=== PATIENT | female | born 1985 | race Caucasian/White ===

== ENCOUNTER 2018-06-30 03:11 | Emergency (ER) | payer OTHER ==
[2018-06-30] MEDS ORDERED: ASPIRIN 81 MG TABLET, CHEWABLE PO ONE (03:47)
[2018-06-30] MEDS ORDERED: LIDOCAINE 2% VISCOUS SOLN 20 ML UDCUP PO ONE (03:48)
[2018-06-30] MEDS ORDERED: MAG HYDROX/AL HYDROX/SIMETH SUSP 30 ML UDCUP PO ONE (03:48)
--- NOTE | 2018-06-30 03:50 | ER Document Report ---
ED General - General Mode of Arrival: Ambulatory Information source: Patient - HPI Onset: Other - 2 AM Onset/Duration: Sudden Quality of pain: Burning Pain Level: 4 Associated symptoms: Chest pain, Shortness of breath. denies: Nonproductive cough, Productive cough, Fever Exacerbated by: Denies Relieved by: Denies Similar symptoms previously: Yes Recently seen / treated by doctor: No <WILLIAM BANSAL - Last Filed: 06/30/18 07:06> <DUYEN SLATER - Last Filed: 06/30/18 08:47> - General Chief Complaint: Chest Pain Stated Complaint: DIFFICULTY BREATHING Time Seen by Provider: 06/30/18 03:39 Notes: Patient presents complaining of waking up gasping for air and having an acid taste in her throat. Patient states she does have a history of GERD and suspects the same today. Patient states that she will typically have episodes like this 1-2 times a week over the past 6 years. Patient states the symptoms have been worsening over the past month. Patient denies any fever. Patient states that at 2 AM she woke up with symptoms and had a burning in her chest with left arm pain. Patient states that she was short of breath at the time. Patient states that she saw GI doctor 10 years ago but has not seen one since for evaluation of her continued reflux symptoms. Patient states she took multiple Tums tablets without improvement of her symptoms which prompted her visit here [facility]. 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 Denies: Hx Peritoneal Dialysis GI Medical History: Reports: Hx Gastroesophageal Reflux Disease Psychiatric Medical History: Reports: Hx Depression <WILLIAM BANSAL - Last Filed: 06/30/18 07:06> Review of Systems - Review of Systems Constitutional: No symptoms reported. denies: Fever, Recent illness EENT: No symptoms reported Cardiovascular: Chest pain Respiratory: Short of breath Gastrointestinal: No symptoms reported. denies: Abdominal pain, Nausea Genitourinary: No symptoms reported Female Genitourinary: No symptoms reported Musculoskeletal: No symptoms reported Skin: No symptoms reported Hematologic/Lymphatic: No symptoms reported Neurological/Psychological: No symptoms reported <WILLIAM BANSAL - Last Filed: 06/30/18 07:06> Physical Exam - General General appearance: Appears well, Alert In distress: None - HEENT Head: Normocephalic, Atraumatic Eyes: Normal Conjunctiva: Normal Nasal: Normal Mouth/Lips: Normal Mucous membranes: Normal Neck: Normal, Supple. No: Lymphadenopathy - Respiratory Respiratory status: No respiratory distress Chest status: Tender Breath sounds: Nonproductive cough. No: Rales, Rhonchi, Stridor, Wheezing Chest palpation: Normal - Cardiovascular Rhythm: Regular Heart sounds: S1 appreciated, S2 appreciated Murmur: No - Abdominal Inspection: Morbidly Obese Distension: No distension Bowel sounds: Normal Tenderness: Nontender Organomegaly: No organomegaly - Back Back: Normal, Nontender - Extremities General upper extremity: Normal inspection, Normal strength General lower extremity: Normal inspection, Normal strength - Neurological Neuro grossly intact: Yes Cognition: Normal Donny Coma Scale Eye Opening: Spontaneous Donny Coma Scale Verbal: Oriented Donny Coma Scale Motor: Obeys Commands Donny Coma Scale Total: 15 - Psychological Associated symptoms: Normal affect, Normal mood - Skin Skin Temperature: Warm Skin Moisture: Dry Skin Color: Normal <WILLIAM BANSAL - Last Filed: 06/30/18 07:06> - Vital signs Vitals: Temp Pulse Resp BP Pulse Ox 98.3 F 102 H 20 139/90 H 96 06/30/18 03:18 06/30/18 03:18 06/30/18 03:18 06/30/18 03:18 06/30/18 03:18 Course - Laboratory Result Diagrams: 06/30/18 04:05 06/30/18 04:05 - Diagnostic Test Radiology reviewed: Reports reviewed <NIMISHA,JAIROMELINA - Last Filed: 06/30/18 07:06> - Laboratory Result Diagrams: 06/30/18 04:05 11/18/18 04:05 <DUYEN SLATER - Last Filed: 06/30/18 08:47> - Re-evaluation Re-evalutation: 06/30/18 05:12 Patient reports that burning sensation to chest is resolved after Maalox, patient refused oral lidocaine. Patient's vital signs stable at this time. Patient feels that her symptoms are related to reflux. Will cycle a second troponin test on patient given episode of left arm pain that has resolved at this time. Patient without complaints at this time. We will continue to monitor. 06/30/18 07:07 Bedside report and handoff given to [facility] (WILLIAM BANSAL) 06/30/18 08:46 2nd trop negative. pt completely asymptomatic and has been since I started my shift. Vitals acceptable. Pt would like to be discharged to home. Recheck with PCM as directed. Return to the ED with any other worsening/concerning symptoms otherwise as reviewed discharge. Patient is in agreement. (DUYEN SLATER) - Vital Signs Vital signs: Temp Pulse Resp BP Pulse Ox 98.3 F 102 H 22 H 110/76 96 06/30/18 03:18 06/30/18 03:18 06/30/18 08:00 06/30/18 08:00 06/30/18 08:00 - Laboratory Laboratory results interpreted by me: 06/30/18 04:05 Sodium 145.4 H Glucose 184 H Discharge <WILLIAM BANSAL - Last Filed: 06/30/18 07:06> <DUYEN SLATER - Last Filed: 06/30/18 08:47> - Discharge Clinical Impression: GERD (gastroesophageal reflux disease) Qualifiers: Esophagitis presence: esophagitis presence not specified Qualified Code(s): K21.9 - Gastro-esophageal reflux disease without esophagitis Condition: Stable Disposition: HOME, SELF-CARE Instructions: Antacid Therapy ([facility]), Reflux Disease (GERD) ([facility]) Additional Instructions: Return immediately for any new or worsening symptoms Followup with your primary care provider, call tomorrow to make a followup appointment Follow-up with a rose grower for further evaluation of your reflux symptoms Prescriptions: Famotidine [Pepcid 20 mg Tablet] 20 mg PO BID #12 tablet Sucralfate [Carafate 1 gm Tablet] 1 gm PO ACHS #40 tablet Referrals: ADELAIDA ROA MD [Primary Care Provider] - Follow up as needed VIDYA GUIDO MD [ACTIVE STAFF] - Follow up as needed BHAKTI NEWBERRY MD [NO LOCAL MD] - Follow up as needed
[2018-06-30 04:18] LABS: ABSOLUTE BASOPHILS # (AUTO) 0.1 10^3/uL (0.0-0.2); ABSOLUTE EOSINOPHILS # (AUTO) 0.2 10^3/uL (0.0-0.6); ABSOLUTE LYMPHOCYTES (AUTO) 2.5 10^3/uL (0.5-4.7); ABSOLUTE MONOCYTES (AUTO) 0.6 10^3/uL (0.1-1.4); ABSOLUTE NEUT (AUTO) 5.7 10^3/uL (1.7-8.2); BASOPHILS % (AUTO) 0.7 % (0-2); EOSINOPHILS % (AUTO) 2.4 % (0-6); HEMOGLOBIN 12.7 g/dL (12.0-15.5); LYMPHOCYTES % (AUTO) 27.7 % (13-45); MEAN CORPUSCULAR HEMOGLOBIN 27.7 pg (27.0-33.4); MEAN CORPUSCULAR HGB CONC 33.4 g/dL (32.0-36.0); MEAN CORPUSCULAR VOLUME 83 fl (80-97); MONOCYTES % (AUTO) 6.3 % (3-13); PLATELET COUNT 346 10^3/uL (150-450); RED BLOOD COUNT 4.59 10^6/uL (3.72-5.28); SEGMENTED NEUTROPHILS % (AUTO) 62.9 % (42-78); TOTAL CELLS COUNTED % (AUTO) 100 %
[2018-06-30 04:33] LABS: ALANINE AMINOTRANSFERASE 42 U/L (9-52); ALKALINE PHOSPHATASE 71 U/L (38-126); ANION GAP 13 (5-19); ASPARTATE AMINO TRANSFERASE 26 U/L (14-36); BILIRUBIN,DIRECT 0.2 mg/dL (0.0-0.4); BILIRUBIN,TOTAL 0.2 mg/dL (0.2-1.3); BLOOD UREA NITROGEN 10 mg/dL (7-20); CALCIUM 9.3 mg/dL (8.4-10.2); CARBON DIOXIDE 25 mmol/L (22-30); CHLORIDE 107 mmol/L (98-107); CREATINE KINASE 34 U/L (30-135); GLUCOSE 184 mg/dL (75-110); LIPASE 42.9 U/L (23-300); POTASSIUM 3.9 mmol/L (3.6-5.0); SODIUM 145.4 mmol/L (137-145); TOTAL PROTEIN 7.1 g/dL (6.3-8.2)
--- NOTE | 2018-06-30 04:44 | RADIOLOGY REPORT (SQ) ---
EXAM DESCRIPTION: XR CHEST 2 VIEWS COMPLETED DATE/TME: 06/30/2018 03:48 CLINICAL HISTORY: 32 years, Female, cp, sob COMPARISON: None. NUMBER OF VIEWS: 2 TECHNIQUE: Oral and lateral views of the chest LIMITATIONS: None. FINDINGS: Heart size is normal. Lungs are clear. No pneumothorax IMPRESSION: No acute cardiopulmonary process 2010 [facility] [employer]- All Rights Reserved
[2018-06-30 04:45] LABS: CREATINE KINASE MB < 0.22 ng/mL (<4.55); TROPONIN I < 0.012 ng/mL
[2018-06-30 08:04] VITALS: BP 110/76
--- NOTE | 2018-06-30 10:50 | EKG REPORT ---
SEVERITY:- NORMAL ECG - SINUS RHYTHM : Confirmed by: Haylee Hinojosa 30-Jun-2018 10:49:18
== END 2018-06-30 08:54 | disposition home or self-care (01) ==
LOC: ER 03:11
DX: K21.9 Gastro-esophageal reflux disease without esophagitis (principal); R07.9 Chest pain, unspecified; R05 Cough; R06.02 Shortness of breath; M79.602 Pain in left arm; Z88.5 Allergy status to narcotic agent; Z88.0 Allergy status to penicillin
CPT/HCPCS: 36415; 71046; 80053; 82550; 82553; 83036; 83690; 84484; 84703; 85025; 93005; 93010; 99285

== ENCOUNTER → 2019-04-03 | Outpatient (CLI) | payer OTHER ==
--- NOTE | 2019-04-04 08:28 | RADIOLOGY REPORT (SQ) ---
EXAM DESCRIPTION: MRI THORACIC SPINE WITHOUT COMPLETED DATE/TIME: 04/03/2019 7:56 pm REASON FOR STUDY: (G35)MULTIPLE SCLEROSIS G35 MULTIPLE SCLEROSIS COMPARISON: None. TECHNIQUE: Sagittal and Axial imaging includes T1, T2, STIR and gradient echo sequences. LIMITATIONS: None. FINDINGS: LOCALIZER: No worrisome findings. ALIGNMENT: Normal. VERTEBRAE: Intact. BONE MARROW: Normal. No marrow replacement or reactive changes. HARDWARE: None in the spine. CORD: Normal in size and signal intensity. SOFT TISSUES: No soft tissue masses. THORACIC DISCS T1-T12: Mild multilevel disc space narrowing most marked from T3-4 through T6-T7. No central stenosis. LOWER CERVICAL: Incompletely imaged. No significant spinal stenosis or exit foraminal stenosis. UPPER LUMBAR: Incompletely imaged. No significant spinal stenosis or exit foraminal stenosis. OTHER: No other significant finding. IMPRESSION: Mild disc degenerative disease. No abnormal cord signal. No focal disc herniations. N o central stenosis. TECHNICAL DOCUMENTATION: JOB ID: [id number] [employer]- All Rights Reserved Reading location - IP/workstation name: [email or web address]
--- NOTE | 2019-04-04 08:37 | RADIOLOGY REPORT (SQ) ---
EXAM DESCRIPTION: MRI CERVICAL SPINE WITHOUT COMPLETED DATE/TIME: 04/03/2019 7:56 pm REASON FOR STUDY: (G35)MULTIPLE SCLEROSIS G35 MULTIPLE SCLEROSIS COMPARISON: None. TECHNIQUE: Sagittal and Axial imaging includes T1, T2, STIR and gradient echo sequences. LIMITATIONS: None. FINDINGS: ALIGNMENT: Normal. VERTEBRAE: Intact. BONE MARROW: Normal. No marrow replacement or reactive changes. DISCS: Normal. No significant abnormal signal or loss of height. HARDWARE: None in the spine. CORD AND BASE OF BRAIN: Normal in size and signal intensity. SOFT TISSUES: No soft tissue masses. C1-C2: No significant spinal stenosis. C2-C3: No significant spinal stenosis or exit foraminal stenosis. C3-C4: No significant spinal stenosis or exit foraminal stenosis. C4-C5: Minimal annular bulging. No central stenosis. No foraminal narrowing. C5-C6: Mild annular bulging. No central stenosis or foraminal narrowing. C6-C7: Mild annular bulging. No central stenosis or nerve root impingement. C7-T1: No significant spinal stenosis or exit foraminal stenosis. UPPER THORACIC: Incompletely imaged. No significant spinal stenosis or exit foraminal stenosis. OTHER: No other significant finding. IMPRESSION: Mild disc degenerative disease in the lower cervical spine. No high-grade central steno sis or nerve root impingement. Normal cord signal on all sequences. TECHNICAL DOCUMENTATION: JOB ID: [id number] [employer]- All Rights Reserved Reading location - IP/workstation name: [email or web address]
--- NOTE | 2019-04-04 08:40 | RADIOLOGY REPORT (SQ) ---
EXAM DESCRIPTION: MRI HEAD WITHOUT COMPLETED DATE/TIME: 04/03/2019 7:56 pm REASON FOR STUDY: (G35)MULTIPLE SCLEROSIS G35 MULTIPLE SCLEROSIS COMPARISON: None. TECHNIQUE: Multiplanar imaging includes non-contrasted T1, T2, FLAIR, and diffusion with ADC map seq uences. Images stored on PACS. LIMITATIONS: None. FINDINGS: ANATOMY: No anomalies. Normal vascular flow voids. Pituitary fossa normal. CSF SPACES: Normal in size and contour. No hemorrhage. CEREBRUM: Areas of abnormal high-signal intensity in the posterior parietal and occipital lobes bilat erally right greater than left. Abnormal signal is adjacent to the posterior horns of lateral ventri cles. No focal mass, midline shift or mass effect. POSTERIOR FOSSA: No signal alteration. No hemorrhage. No edema, masses or mass effect. Internal patience tory canals, cerebello-pontine angles, mastoids normal. DIFFUSION IMAGING: Negative for acute or sub-acute infarction. ORBITS: No masses. Globes normal. PARANASAL SINUSES: No fluid levels. Mucosa normal. OTHER: No other significant finding. IMPRESSION: Areas of abnormal signal in the periventricular white matter in the posterior parietal a nd occipital lobes right greater than left. Findings are consistent with the clinical history of mul tiple sclerosis. No focal mass or edema. No acute infarcts. EVIDENCE OF ACUTE STROKE: NO. TECHNICAL DOCUMENTATION: JOB ID: [id number] [employer]- All Rights Reserved Reading location - IP/workstation name: [email or web address]
== END ==
LOC: RAD 17:30
PROVIDERS: ATTEND Psychiatry & Neurology Neurology
DX: G35 Multiple sclerosis (principal)
CPT/HCPCS: 70551; 72141; 72146

== ENCOUNTER 2019-07-16 00:16 | Emergency (ER) | payer OTHER ==
[2019-07-16] MEDS ORDERED: ACETAMINOPHEN 325 MG TABLET PO ONE (01:45)
--- NOTE | 2019-07-16 02:33 | RADIOLOGY REPORT (SQ) ---
EXAM DESCRIPTION: XR HAND 3 OR MORE VIEWS COMPLETED DATE/TME: 07/16/2019 00:00 CLINICAL HISTORY: 33 years, Female, bone pain COMPARISON: None. NUMBER OF VIEWS: Three TECHNIQUE: Three views of the left hand LIMITATIONS: None. FINDINGS: There is no acute fracture or dislocation. There is a superficial laceration with soft tissue swelling along the dorsum of the hand. No radiopaque foreign body. IMPRESSION: No acute fracture or dislocation. copyright 2010 [employer]- All Rights Reserved
[2019-07-16] MEDS ORDERED: CLINDAMYCIN 600 MG/D5W RTU 600 MG/50 ML RTUPB IV ONE (03:01)
[2019-07-16] MEDS ORDERED: NORMAL SALINE 1000 ML 1,000 ML IV ONE (03:02)
[2019-07-16] MEDS ORDERED: HYDROMORPHONE HCL INJ/PF 2 MG/ML AMPULE IV ONE (03:02)
--- NOTE | 2019-07-16 03:03 | ER Document Report ---
ED Animal Bite - General Chief Complaint: Dog Bite Stated Complaint: DOG BITE Time Seen by Provider: 07/16/19 02:00 Primary Care Provider: ADELAIDA ROA MD [Primary Care Provider] - Follow up as needed Mode of Arrival: Ambulatory Information source: Patient Notes: Otherwise healthy 33-year-old female presenting to the emergency department chief complaint of dog bite. Patient reports she was trying to break up a fight between HER-2 dogs. She states they are large dogs and all 3 immunizations are up-to-date. Patient reports she had a tetanus shot approximately 2 years ago. She reports bite nolen to her left and right hands. Denies any other injuries. She reports the bite happened approximately 11 PM. - Related Data Allergies/Adverse Reactions: codeine Allergy (Verified 06/30/18 03:15) fentanyl Allergy (Verified 06/30/18 04:12) iodine Allergy (Verified 06/30/18 03:15) morphine Allergy (Verified 06/30/18 03:15) Penicillins Allergy (Verified 06/30/18 03:15) Home Medications: baclofen, flexeril, acidphex Past Medical History - General Information source: Patient - Social History Smoking Status: Never Smoker Family History: Reviewed & Not Pertinent Patient has suicidal ideation: No Patient has homicidal ideation: No Renal/ Medical History: Reports: Hx Ovarian Cysts. Denies: Hx Peritoneal Dialysis GI Medical History: Reports: Hx Gastroesophageal Reflux Disease Psychiatric Medical History: Reports: Hx Depression Surgical Hx: Negative - Immunizations Immunizations up to date: Yes Review of Systems - Review of Systems Constitutional: No symptoms reported EENT: No symptoms reported Cardiovascular: No symptoms reported Respiratory: No symptoms reported Gastrointestinal: No symptoms reported Genitourinary: No symptoms reported Female Genitourinary: No symptoms reported Musculoskeletal: See HPI Skin: See HPI Hematologic/Lymphatic: No symptoms reported Neurological/Psychological: No symptoms reported Physical Exam - Vital signs Vitals: Temp Pulse Resp BP Pulse Ox 98.3 F 97 18 122/70 94 07/16/19 00:42 07/16/19 00:42 07/16/19 00:42 07/16/19 00:42 07/16/19 00:42 - Notes Notes: PHYSICAL EXAMINATION: GENERAL: Well-appearing, well-nourished and in no acute distress. HEAD: Atraumatic, normocephalic. EYES: Pupils equal round extraocular movements intact, conjunctiva are normal. ENT: Nares patent NECK: Normal range of motion LUNGS: No respiratory distress Musculoskeletal: Limited range of motion to right hand due to swelling however patient is neurovascularly intact. Cap refill less than 3 seconds, strong radial pulse. Large puncture wound noted over dorsal surface of right hand, smaller puncture wound proximal to this. Significant soft tissue swelling noted in the right hand and right wrist area. Minor puncture wounds noted to left hand. NEUROLOGICAL: Normal speech, normal gait. PSYCH: Normal mood, normal affect. SKIN: See above. Course - Re-evaluation Re-evalutation: 07/16/19 03:45 Hand x-rays negative. Pretty significant swelling noted in the right forearm. Patient sent back to x-ray. Tdap is up-to-date. Patient has a penicillin allergy, will give her an IV dose of clindamycin here in the emergency department. She is also been given a dose of pain medication. P CTs will start wound cleaning and irrigation shortly. Hand X-Ray 07/16/19 00:00 IMPRESSION: No acute fracture or dislocation. copyright 2011 [employer]- All Rights Reserved Forearm X-Ray 07/16/19 03:07 IMPRESSION: Soft tissue injury; else, no acute findings. No fractures identified on x-ray. Wounds were copiously cleaned and irrigated with saline and surgical scrub. I did unfortunately have to suture 1 of the lacerations to the patient's left hand. I have placed to loosely approximated sutures to partially pull the wound together. Patient was started on clindamycin as she has an allergic reaction to penicillin. She was also given IV clindamycin here in the emergency department. I asked her to please return i n 48 hours for wound rechecks. Patient verbalizes understanding and agreement with plan and signs and symptoms of infection. The patient's emergency department workup and current diagnosis were explained to the patient and or family. Follow-up instructions were provided. Medications if prescribed were discussed. Instructions for when to return to the emergency department including specific worrisome symptoms were discussed with the patient and/or family. - Vital Signs Vital signs: Temp Pulse Resp BP Pulse Ox 98 F 72 16 133/80 H 98 07/16/19 05:08 07/16/19 05:08 07/16/19 05:08 07/16/19 05:08 07/16/19 05:08 Procedures - Laceration/Wound Repair Left hand Wound length (cm): 2 Wound's Depth, Shape: Irregular Laceration pre-procedure: Sterile PPE donned Anesthetic type: 1% Lidocaine Wound Repaired With: Sutures Suture Size/Type: 5:0 Number of Sutures: 2 Discharge - Discharge Clinical Impression: Dog bite Qualifiers: Encounter type: initial encounter Qualified Code(s): W54.0XXA - Bitten by dog, initial encounter Condition: Stable Disposition: HOME, SELF-CARE Additional Instructions: Animal Bites Animal bites are often heavily contaminated with bacteria. In spite of thorough cleansing and proper treatment, these wounds frequently become infected. Bite wounds of the hands are especially prone to complications. Bites are dressed, if possible. Large wounds may require suturing after internal cleansing. Because of infection risk, some large wounds must remain unstitched. Your doctor is trained to advise you on the best treatment for your bite. Call the doctor at once if the wound becomes red, swollen, warm, increasingly painful, or if it begins to drain. Danger signs also include red streaks up the involved extremity, swollen glands in the groin or under the arm, or fever and chills. The risk of rabies from domestic animals is very low. Bats, sick animals, and wild animals may expose you to rabies. The physician, or the health department, will inform you if you will need to receive the rabies vaccine. Clindamycin You have been given a prescription for the antibiotic clindamycin. It is often prescribed for infections in the mouth, such as dental infections or abscesses, and for skin infections due to MRSA. It's important that you take al l the medication, unless instructed otherwise by your physician. Failure to complete the entire course can result in relapse of your condition. Common side effects of antibiotics include nausea, intestinal cramping, or diarrhea. Women may develop vaginal yeast infections, and babies can get yeast (thrush) in the mouth following the use of antibiotics. Contact your physician if you develop significant side effects from this medication. Allergy to this antibiotic can result in hives, wheezing, faintness, or itching. If symptoms of allergy occur, stop the medication and call the doctor. Please take antibiotics as prescribed. Watch very closely for signs of infection to include increasing swelling, pain, redness, red streaking from the area, development of fever or any other worsening symptoms. Please change the dressings at least twice daily, and apply a thin layer of triple antibiotic ointment to the area and place a clean dressing. Please return to the emergency department immediately if you develop red streaking from the area, foul drainage, develop a fever increased swelling, worsening pain or any other signs of infection. Follow-up with your primary care provider in 2 to 3 days for wound recheck, if they are unable to see what you may come back to the emergency department for a wound recheck. My recommendation will be to come in the morning between 9 and 10 AM. Prescriptions: Tramadol HCl [Ultram 50 mg Tablet] 50 mg PO Q4HP PRN #16 tab PRN Reason: Clindamycin HCl 300 mg PO QID #40 capsule Referrals: ADELAIDA ROA MD [Primary Care Provider] - Follow up as needed
[2019-07-16] MEDS ORDERED: LIDOCAINE 1% INJ-PF (10 MG/ML) 30 ML SDV INJ ONE (04:07)
--- NOTE | 2019-07-16 04:18 | RADIOLOGY REPORT (SQ) ---
EXAM DESCRIPTION: XR FOREARM 2 VIEWS COMPLETED DATE/TME: 07/16/2019 03:07 CLINICAL HISTORY: 33 years Female, dog bite COMPARISON: None. Findings: Known soft tissue injury; no radioopaque foreign body. Bones, joints, and soft tissues of the LEFT XR FOREARM 2 VIEWS appear otherwise intact. IMPRESSION: Soft tissue injury; else, no acute findings.
[2019-07-16 05:02] VITALS: BP 133/80
== END 2019-07-16 05:08 | disposition home or self-care (01) ==
LOC: ER 00:16
DX: S61.452A Open bite of left hand, initial encounter (principal); S61.451A Open bite of right hand, initial encounter; M79.89 Other specified soft tissue disorders; W54.0XXA Bitten by dog, initial encounter; Y93.89 Activity, other specified; Y92.009 Unspecified place in unspecified non-institutional (private) residence as the place of occurrence of the external cause; K21.9 Gastro-esophageal reflux disease without esophagitis; Z79.899 Other long term (current) drug therapy; Z88.6 Allergy status to analgesic agent; Z88.5 Allergy status to narcotic agent; Z88.0 Allergy status to penicillin
CPT/HCPCS: 99283; 96375; 96365; 73090; 73130; 12001; J3490; J1170; J7030